=== PATIENT | female | born 1970 | race Caucasian/White ===

== ENCOUNTER 2018-08-04 01:24 | Emergency (ER) | payer BC ==
[2018-08-04] MEDS: IBUPROFEN 800 MG TAB PO ×3 (02:09→02:24)
[2018-08-04] MEDS: HYDROCODONE/APAP (10/325) TAB PO (03:59)
== END 2018-08-04 04:00 | disposition home or self-care (01) ==
LOC: E/R 01:24
DX: S00.83XA Contusion of other part of head, initial encounter (principal); S20.211A Contusion of right front wall of thorax, initial encounter; V49.40XA Driver injured in collision with unspecified motor vehicles in traffic accident, initial encounter
CPT/HCPCS: 70486; 99284-25